=== PATIENT | female | born 1935 | race Caucasian/White ===

== ENCOUNTER 2019-03-23 07:46 | Inpatient (IN) | payer OTHER ==
[~2019-03-23] VITALS: Ht 162.6 cm; Wt 70.4 kg
[~2019-03-23 07:46] MED LIST: ALBU90OI; CLIM.025TP; DOC250 PO; LISI20 PO; SALM50IP; TRIHYD253A
[2019-03-23 08:21] LABS: BASOPHILS ABSOLUTE AUTO 0.13 K/mm3 (0.00-0.23); BASOPHILS PERCENT AUTO 1 % (0-2); EOSINOPHILS PERCENT AUTO 3 % (0-6); Hematocrit 52.3 % (33.0-51.0); Hemoglobin 17.2 g/dL (11.5-16.0); IMMATURE GRAN ABSOLUTE AUTO 0.05 K/mm3 (0.00-0.10); IMMATURE GRAN PERCENT AUTO 0 % (0-1); LYMPHOCYTES ABSOLUTE AUTO 3.16 K/mm3 (0.84-5.20); LYMPHOCYTES PERCENT AUTO 24 % (21-46); MONOCYTES ABSOLUTE AUTO 1.25 K/mm3 (0.16-1.47); MONOCYTES PERCENT AUTO 9 % (4-13); Mean Corpuscular HGB 31.3 pg (26.0-34.0); Mean Corpuscular HGB Conc 32.9 g/dL (31.5-36.5); Mean Corpuscular Volume 95 fL (80-100); Mean Platelet Volume 10.4 fL (9.1-12.4); NEUTROPHILS ABSOLUTE AUTO 8.27 K/mm3 (1.96-9.15); NEUTROPHILS PERCENT AUTO 62 % (41-73); Platelet Count 357 K/mm3 (150-400); RDW Coefficient Variation 13.5 % (11.7-14.2); RDW Standard Deviation 47.7 fL (35.1-46.3); Red Blood Cell Count 5.49 M/mm3 (3.80-5.20); White Blood Cell Count 13.26 K/mm3 (4.00-11.30)
[2019-03-23 08:26] LABS: PCO2 Arterial 47.7 mmHg (35-45); PO2 Arterial 82.2 mmHg (80-100); pH Blood Arterial 7.33 (7.35-7.45)
[2019-03-23 08:45] LABS: Albumin, Blood 4.2 g/dL (3.4-5.0); Albumin/Globulin Ratio 0.8 (0.8-1.8); Bilirubin, Total 0.3 mg/dL (0.1-1.0); Bun/Creatinine Ratio 17.3 (12.0-20.0); Calcium, Blood 9.8 mg/dL (8.5-10.1); Creatinine, Blood 1.27 mg/dL (0.40-1.00); Globulin, Blood 5.1 g/dL (2.2-4.0); Potassium, Blood 4.4 mmol/L (3.5-5.5); Total Protein, Blood 9.3 g/dL (6.4-8.2); Troponin I 0.021 ng/mL (0.000-0.040)
[2019-03-23] MEDS ORDERED: TIOT18 INH (09:19)
[2019-03-23] MEDS ORDERED: CLIMARA1 EACH (09:20)
[2019-03-23] MEDS ORDERED: ATEN25 PO (09:21)
--- NOTE | 2019-03-23 13:20 | NUR ---
PT ADMITTED/ BP 172/120 PT ADMITTED AT 1305. PT SATING IN THE 90S ON 5L VIA NC. PT BP ELEVATED AT 172/[address] THE [address] DR. NATARAJAN NOTIFIED & STATED HE WOULD PLACE ORDERED. PT ORIENTED TO ROOM. PT SLEEPY AT THIS TIME FROM ATIVAN GIVEN IN ER, BUT AROUSABLE. A&OX2. PT UNABLE TO GIVE CLEAR HEALTH HISTORY. WILL CONTINUE TO MONITOR.
--- NOTE | 2019-03-23 13:51 | NUR ---
PT BP IMPROVED. PT BP IMPROVED WITHOUT INTERVETION AT THIS TIME. WILL CONTINUE TO MONITOR.
--- NOTE | 2019-03-23 17:31 | NUR ---
SHIFT SUMMARY PT MORE ALERT & AWAKE NOW. CURRENTLY UP IN CHAIR FOR DINNER. PT HAS EXPRESSIVE DYSPHAGIA. A&OX3-4 NOW. HYDRALIZINE GIVEN ONCE THIS SHIFT TO ASSIST WITH BP CONTROL. CURRENT VSS. PT SATING IN THE 90S ON 5L. WILL CONTINUE TO MONITOR UNTIL TURNOVER IS COMPLETE. NO OTHER CHANGES IN ASSESSMENT AT THIS TIME.
[2019-03-24 04:21] LABS: BASOPHILS ABSOLUTE AUTO 0.01 K/mm3 (0.00-0.23); BASOPHILS PERCENT AUTO 0 % (0-2); EOSINOPHILS PERCENT AUTO 0 % (0-6); Hematocrit 40.7 % (33.0-51.0); Hemoglobin 13.5 g/dL (11.5-16.0); IMMATURE GRAN ABSOLUTE AUTO 0.03 K/mm3 (0.00-0.10); IMMATURE GRAN PERCENT AUTO 0 % (0-1); LYMPHOCYTES ABSOLUTE AUTO 0.42 K/mm3 (0.84-5.20); LYMPHOCYTES PERCENT AUTO 6 % (21-46); MONOCYTES ABSOLUTE AUTO 0.26 K/mm3 (0.16-1.47); MONOCYTES PERCENT AUTO 3 % (4-13); Mean Corpuscular HGB Conc 33.2 g/dL (31.5-36.5); Mean Corpuscular Volume 93 fL (80-100); Mean Platelet Volume 10.7 fL (9.1-12.4); NEUTROPHILS ABSOLUTE AUTO 6.93 K/mm3 (1.96-9.15); NEUTROPHILS PERCENT AUTO 91 % (41-73); Platelet Count 248 K/mm3 (150-400); RDW Coefficient Variation 13.7 % (11.7-14.2); RDW Standard Deviation 46.6 fL (35.1-46.3); Red Blood Cell Count 4.36 M/mm3 (3.80-5.20); White Blood Cell Count 7.65 K/mm3 (4.00-11.30)
[2019-03-24 04:46] LABS: Albumin, Blood 3.4 g/dL (3.4-5.0); Albumin/Globulin Ratio 0.9 (0.8-1.8); Bilirubin, Total 0.4 mg/dL (0.1-1.0); Bun/Creatinine Ratio 18.6 (12.0-20.0); Creatinine, Blood 1.13 mg/dL (0.40-1.00); Globulin, Blood 3.8 g/dL (2.2-4.0); Potassium, Blood 4.1 mmol/L (3.5-5.5); Total Protein, Blood 7.2 g/dL (6.4-8.2)
--- NOTE | 2019-03-24 05:48 | NUR ---
SHIFT SUMMARY PT SLEEPING IN ROOM COMFORTABLY AT THIS TIME. PT HAD NO ACUTE CHANGES IN STATUS T/O NIGHT. PT VERY ANXIOUS ABOUT BEING IN HOSPITAL. PT ALSOP VERY PARTICULAR ABOUT MEDICATIONS AND HOW THINGS SHOULD BE DONE, OCCASIONALLY ARGUMENTATIVE W/ STAFF. PT USUALLY EASILY REDIRECTABLE. PT ALSO VERY [place], HAS HEARING AID BUT REPORTS "DON'T LIKE TO WEAR IT IF I DONT REALLY HAVE TO". PT IS VERY UNSTEADY ON FEET HEN STANDING, AND DOES NOT USE CALL LIGHT APPROPRIATELY. BED ALARM HAS BEEN ON FOR PT SAFETY. RESP UNEVEN, AND TACHYPNIC W/ ANY EXERTION. PT ALSO REPORTS GETS "PTSD BREATHING" W/ EXERTION, TO WHICH PT REPORTS "I NEED A PAPER BAG TO BREATH IN AND THAT WILL BE BETTER". PT DENIES PAIN UNLESS L SIDE IS TOUCHED, PT HAD FALL RECENTLY AT HOME, AND L SIDE IS VERY SORE. CALL LIGHT IS IN REACH, BED ALARM ON FOR SAFETY.
--- NOTE | 2019-03-24 17:33 | NUR ---
PT IS AOX3 WITH CONFUSION AND IS ZUNI. PT CALLS INTERMITTENTLY AND CAN SET BED ALARM OF PERIODICALLY. BED ALARM IN PLACE. PT IS A ONE PERSON TO BEDSIDE COMMODE. PT STATES SHE FEELS MUCH BETTER TODAY. PT O2 HAS BEEN 93-96%. PLEASANT AND COOPERATIVE. WILL CONITUE TO MONITOR.
--- NOTE | 2019-03-24 17:50 | NUR ---
DECLINES MEDICATION FOR NAUSEA AND VOMITING. STATES THAT SHE IS STARVING SO HER BODY IS REACTING TO THAT. SHE STATES THAT SHE DOES NOT WANT ANYTHING FOR NAUSEA OR VOMITING; STATES SHE WANTS TO LET HER STOMACH CLEAN ITSELF OUT.
--- NOTE | 2019-03-24 18:00 | NUR ---
PT HAD NAUSEA AT DINNER. WHEN OFFERED NAUSEA MEDS SHE REFUSED AND STATED SHE NEEDS TO EMPTY STOMACH.
--- NOTE | 2019-03-24 23:00 | NUR ---
PT VERY AGGITATED THIS RN TO ROOM AFTER PT SET OFF BED ALARM. PT WAS LYIGN SIDEWAYS IN BED WITH FEET OVER RAILING. THIS RN AND SOIL CONSERVATION TECHNICIAN ATTEMPED TO HELP BOOST PT IN BED WITH CROOKS PAD, PT STARTED YELLING AT STAFF AND SWINGING ARMS AT STAFF. STAFF BACKED AWAY FROM PT AND THIS TIME. PT EDUCATED THAT VIOLENCE TOWARDS STAFF WAS UNACCEPTABLE. PT CALMING AT THIS TIME. ASSISTED PT TP SITTING POSITION. PT REMAINS AGGITATED AT THIS TIME, PT VERY UPSET ABOUT SIDE RAILS BEING UP ON THE BED PT STS "YOU'RE TREATING ME LIKE A SLAVE!". PT WAS EDUCATED ABOUT NEED FOR SIDE RAILS DUE TO PT NOT REMEMBERING TO USE CALL LIGHT APPROPRIATELY BEFORE NEEDING TO GET OUT OF BED. PT ALSO HAS HAD RECENT FALLS AT HOME, AND NEAR FALLS DURING THIS HOSPITAL STAY. PT REMAINS VERY AGGITATED WITH THIS RN, AND STARTS YELLING AT STAFF. DIETITIAN TO ROOM TO ATTEMPT TO HELP CALM PT. MEDICATIONS GIVEN AT THIS TIME FOR ANXIETY. PT ASSISTED BACK TO BACK TO BED AFTER SEVERAL MINUTES OF EDUCATION FROM DIETITIAN. CALL LIGHT IN REACH. BED ALARM ON
--- NOTE | 2019-03-25 06:27 | NUR ---
SHIFT SUMMARY PT SLEEPING IN ROOM COMFORTABLY AT THIS TIME. PT HAD EPIDOES OF AGGITATION AND ANGER AT STAFF FOR NOT BEING ALLOWED TO BE UP IN ROOM W/O STAFF PRESENT. PT WAS UPSET WITH SIDERAILS BEING USED AND BED ALARM GOING OFF WHEN PT ATTEMPTED TO STAND. SEE PREVIOUS NOTE. PT WAS MEDICATED FOR AGGITATION AND ANXIETY AND PROCEDED TO SLEEP WELL T/O THE REST OF THE NIGHT AND WAS MORE EASILY DIRECTABLE, AND COOPERATIVE W/ CARE. RESP SHALLOW AND TACHY ON 2L NC W/ SATS >92%. PT HAS PRODUCTIVE COUGH. PT DENIES PAIN. DOES NOT USE CALL LIGHT APPROPRIATELY. BED ALARM AND SIDE RAILS UP FOR SAFETY.
--- NOTE | 2019-03-25 08:15 | NUR ---
PT PLEASANT COOP HIGH ANXIETY. A/O. IN TALKING ABOUT FAMILY, SHE STATES HER DAUGHTER WAS MURDERED. DISCUSSED BENEFIT OF ATIVAN TO HELP TAKE SOME ANXIETY, SHE REF AT THIS TIME. STATES WILL TRY CALM SELF, WITH GODS HELP. AGREED TO RECONSIDER IF WORSENS. H/R REG, NO MURMER NOTED. PER TELE: S TACH AT 116 WITH PVC'S. LUNGS TIGHT AND WHEEZY T/O. RESP AT 20, SOME EFFORT. ABLE TO TALK 6-8 WORD SENTENCES MORE WHEN DISTRACTED. ON 2L O2. BT X4 LAST BM PT STATES NOT SURE.VOIDS PER BSC. 1 ASST WITH FWW. BED ALARM ON FOR SAFETY, BED IN LOW POSITION, CALL LITE IN REACH.
--- NOTE | 2019-03-25 11:00 | NUR ---
PT RESTING, EYES CLOSED. RESP EASY, UNLABORED. DID NOT AWAKEN
--- NOTE | 2019-03-25 18:51 | NUR ---
PT QUITE PLEASANT TODAY. DENIES PAIN, ANXIOUS. STATES HAS HAD MUCH IMPROVEMENT WITH ATIVAN. 1/2 MG. HAVE HAD SEVERAL TALKS WITH HER TODAY. RESP IMPROVED SINCE THIS AM. NO OTHER CONCERNS AT THIS TIME. BED IN LOW POSITION, CALL LITE IN REACH, CALLS APPROP.
--- NOTE | 2019-03-26 02:21 | NUR ---
ASSUMED CARE FROM SEAN BARFIELD APPROXIMATELY 1900; PT IS CONFUSED AND ANXIOUS AT TIMES; NEEDS FREQUENT REASSURANCE; LIVES ALONE AND USES FWW BASELINE; APPRECIATES TIME TAKEN WITH INTERVENTIONS AND EXPLAINATIONS;PT STANDS AND PIVOTS TO BSC W/ ASSISTANCE; DYSPNIC W/EXERTION; PT STATES SHE "FEELS SO WEAK"; TELE IN PLACE; SINUS TACH W/ HR 107; 2 LPM NC; O2 SATS >90% PT STATES SHE IS WONDERING WHY GOD HAS NOT TAKEN HER YET; ANXIOUSNESS PROGRESSIVE THROUGH THE NIGHT; PT REMINED TO USE CALL LIGHT FOR SAFETY; BED ALARM ON; BED IN LOWEST POSITION; CALL LIGHT WITHIN REACH; WILL CONTINUE TO MONITOR AND ASSESS UNTIL HANDOFF TO DAY SHIFT RN.
[2019-03-26 04:07] LABS: BASOPHILS ABSOLUTE AUTO 0.01 K/mm3 (0.00-0.23); BASOPHILS PERCENT AUTO 0 % (0-2); EOSINOPHILS PERCENT AUTO 0 % (0-6); Hematocrit 40.8 % (33.0-51.0); Hemoglobin 13.5 g/dL (11.5-16.0); IMMATURE GRAN ABSOLUTE AUTO 0.08 K/mm3 (0.00-0.10); IMMATURE GRAN PERCENT AUTO 1 % (0-1); LYMPHOCYTES ABSOLUTE AUTO 0.21 K/mm3 (0.84-5.20); LYMPHOCYTES PERCENT AUTO 2 % (21-46); MONOCYTES ABSOLUTE AUTO 0.49 K/mm3 (0.16-1.47); MONOCYTES PERCENT AUTO 5 % (4-13); Mean Corpuscular HGB Conc 33.1 g/dL (31.5-36.5); Mean Corpuscular Volume 94 fL (80-100); Mean Platelet Volume 10.6 fL (9.1-12.4); NEUTROPHILS ABSOLUTE AUTO 10.06 K/mm3 (1.96-9.15); NEUTROPHILS PERCENT AUTO 93 % (41-73); Platelet Count 236 K/mm3 (150-400); RDW Standard Deviation 47.5 fL (35.1-46.3); Red Blood Cell Count 4.35 M/mm3 (3.80-5.20); White Blood Cell Count 10.85 K/mm3 (4.00-11.30)
[2019-03-26 04:30] LABS: Albumin, Blood 3.5 g/dL (3.4-5.0); Anion Gap 8 mmol/L (6-16); Blood Urea Nitrogen 32 mg/dL (8-24); Bun/Creatinine Ratio 26.9 (12.0-20.0); CO2, Blood 23 mmol/L (21-32); Calcium, Blood 9.2 mg/dL (8.5-10.1); Chloride, Blood 102 mmol/L (98-108); Creatinine, Blood 1.19 mg/dL (0.40-1.00); Glomerular Filtration Rate 46 (60-); Glucose, Blood 155 mg/dL (70-99); Magnesium, Blood 2.1 mg/dL (1.6-2.4); Phosphorus, Blood 2.1 mg/dL (2.5-4.9); Potassium, Blood 4.6 mmol/L (3.5-5.5); Sodium, Blood 133 mmol/L (136-145)
[2019-03-26 04:37] LABS: Troponin I 0.885 ng/mL (0.000-0.040)
[2019-03-26 10:49] LABS: Adenovirus Not Detected (NOT DETECT); Bordetella pertussis Not Detected (NOT DETECT); Chlamydophila pneumoniae Not Detected (NOT DETECT); Coronavirus 229E Not Detected (NOT DETECT); Coronavirus HKU1 Not Detected (NOT DETECT); Coronavirus NL63 Not Detected (NOT DETECT); Coronavirus OC43 Not Detected (NOT DETECT); Human Metapneumovirus Not Detected (NOT DETECT); Human Rhinovirus/Enterovirus Not Detected (NOT DETECT); Influenza A Not Detected (NOT DETECT); Influenza A/2009-H1 Not Detected (NOT DETECT); Influenza A/H1 Not Detected (NOT DETECT); Influenza A/H3 Not Detected (NOT DETECT); Influenza B Not Detected (NOT DETECT); Mycoplasma pneumoniae Not Detected (NOT DETECT); Parainfluenza Virus 1 Not Detected (NOT DETECT); Parainfluenza Virus 2 Not Detected (NOT DETECT); Parainfluenza Virus 3 Not Detected (NOT DETECT); Parainfluenza Virus 4 Not Detected (NOT DETECT); Respiratory Syncytial Virus Not Detected (NOT DETECT)
--- NOTE | 2019-03-26 13:53 | NUR ---
PT'S FRIEND ALE IS WHO BROUGHT HER TO THE HOSPITAL, SHE WOULD LIKE TO CALL HER AT [phone]
--- NOTE | 2019-03-26 17:43 | NUR ---
SUMMARY/TRANSFER PT TO BE TRANSFERRED TO MEDICAL FLOOR ROOM 361, REPORT CALLED TO SHARON ESTRADA, PT HAS BEEN ALERT AND ORIENTED, BUT VERY HYDABURG, PT WITH HIGH ANXIETY OFF AND ON T/O THE DAY, PT REFUSED HER SOLU-MEDROL STATING SHE DID NOT LIKE HOW IT MADE HER FEEL, AND SHE DECLINED TO TAKE ANY ATIVAN FOR HER ANXIETY BECAUSE SHE DID NOT LIKE HOW THAT MADE HER FEEL EITHER, PT ABLE TO CONTACT A FRIEND TO COME VISIT HER THIS AFTERNOON, PT UP IN THE RECLINER EATING HER DINNER, WILL MOVE TO THE FLOOR ONCE SHE IS DONE
--- NOTE | 2019-03-26 18:23 | NUR ---
PATIENT TRANSFER. THE PATIENT WAS TRANSFERRED TO THE MEDICAL FLOOR, ROOM #361 AT 1815, FORM PCU #[id number], AFTER REPORT WAS CALLED IN FROM THE PCU. THE PATIENT ARRIVED ON THE FLOOR IN A GURNEY AND WAS SLID ACROSS TO HER BED. THE PATIENT IS RESTING AT THIS TIME, WILL CONTINUE TO MONITOR.
--- NOTE | 2019-03-27 06:37 | NUR ---
SHIFT SUMMARY PT VERY ANXIOUS AND NONCOMPLIANT WITH MEDICATIONS AND CARE. REFUSED PROTONIX THIS AM AND REFUSED TO LET LAB DRAW. TELLING ME THAT "THAT'S NOT WHY I'M HERE" AND THAT SHE WAS "READY TO BE WITH THE LORD". PT ON RA MOST OF THE EVENING WITH O2 SATS IN THE LOW 90'S. PT SBA TO BSC. GOOD AMOUNT OF OUTPUT THIS EVENING. HEART RATE AND BLOOD PRESSURE ELEVATED BUT IMPROVED WITH EVENING DOSE OF METOPROLOL. OTHERWISE NO ACUTE CHANGES. WILL CONTINUE TO MONITOR AND REPORT TO DAY RN.
--- NOTE | 2019-03-27 16:27 | NUR ---
SHIFT SUMMARY THE PATIENT PRESENT THIS MORNING A&O X3, ELEVATED B/P AND WITH DIMINISHED LUNG SOUNDS. THE PATIENT HAS REFUSED MOST OF HER MEDICATIONS THIS SHIFT AND HAS TOLD HER DOCTOR THAT SHE WAS GOING TO LEAVE. THE DOCTOR TRIED TO PERSAUDE HER AGAIST THE MOVE, BUT THE PATIENT WAS SET IN HER WAY. THE PATIENT WAS INTERVIEWED BY THE CHARGE NURSE AND IS NOT HAPPY ABOUT BEING "HELD". THE PATIENT HAS A FRIEND THAT TOLD THE CHARGE NURSE THAT SHE CAN NOT TAKE CARE OF THE PATIENT. THE PATIENT IS REFUSING ANY ACTIONS, REFUSING TO ALLOW THE SCANING OF HER I/D BAND. THE PATIENT IS SETTING ON THE SIDE OF HER BED, WILL CONTINUE TO MONITOR.
--- NOTE | 2019-03-27 21:01 | NUR ---
PT REFUSING ANY CARE OR MEDICATIONS AT THIS POINT. WOULD NOT ALLOW VITAL SIGNS OR TAKE MEDICATIONS THIS EVENING.
--- NOTE | 2019-03-28 05:33 | NUR ---
SHIFT SUMMARY PT COMPLETELY NONCOMPLIANT THIS EVENING. REFUSING ALL CARE AND MEDICATIONS. PT STATES THAT SHE BELIEVES THAT SHE DOES NOT NEED TO BE HERE AND THAT SHE WILL NOT BE TAKING ANY MEDICATIONS OR ALLOWING ANYTHING TO BE DONE WHILE SHE IS HERE. PT DID NOT APPEAR TO BE IN ANY RESPIRATORY DISTRESS THIS EVENING AND REMAINED ON RA. HOWEVER, PT WOULD NOT LET ME LISTEN TO HER LUNGS OR CHECK HER O2 SATS. PT RESTING IN HER BED AT THIS TIME, LAYING WITH HER HEAD AT THE FOOT OF THE BED. PT HAS BEEN GETTING UP INDEPENDENTLY TO [facility]. STEADY ON HER FEET. NO ACUTE CHANGES THIS EVENING.
--- NOTE | 2019-03-28 06:32 | NUR ---
WENT TO ROUND ON PT ONE LAST TIME AND FOUND PT LYING ON THE FLOOR WITH A PILLOW AND A BLANKET. TOLD PT SHE COULD NOT SLEEP ON THE FLOOR AND ASSISTED PT BACK UP TO BED. PT REFUSED TO HAVE HER HEAD AT THE HEAD OF THE BED AND THEN REFUSED TO LAY DOWN. PT IS SITTING ON THE SIDE OF THE BED AT THIS TIME. [employer] HCM CONSULTANT REPORTED THAT SHE HAD JUST BEEN IN THE PT'S ROOM 15 MINUTES PRIOR AND PT REFUSED TO LAY IN THE BED CORRECTLY AT THIS TIME ALSO. PT HAS NO BRUISING OR SIGNS OF A FALL. EDUCATED PT ON WHY SHE NEEDED HELP FROM STAFF BUT PT IS ADAMENT THAT SHE IS "FINE" AND REFUSES HELP OR CARE FROM STAFF. PT HAD BEEN AMBULATING IN THE ROOM INDEPENDENTLY, THIS NURSE WATCHED PT WALK FROM BED TO DOOR TO THE ROOM WITH NO DIFFICULTY EARLIER IN THE SHIFT. PT CONTINUING TO REFUSE VITAL SIGNS ALSO. WILL PASS ON TO DAY RN.
--- NOTE | 2019-03-28 15:30 | NUR ---
LASIX REFUSAL PT REFUSES LASIX, WHEN ASKED WHY STATES SHE HAS TAKEN IT IN THE PAST. IT MADE HER CRAZY, MEAN AND SHE REMEMBERS TAKING IT WITH POTASSIUM. PT CONTUNIALLY REPEATS THAT SHE IS "ALREADY LOOSING PLENTY OF WATER AND MY FEET STOPPED SWELLING".
--- NOTE | 2019-03-28 17:12 | NUR ---
Mrs. Fraser was quite talkative and appreciative of prayer and theraputic listening. She explained to me her rather eccelctic catholic beliefs and was delighted that I affirmed these. She wanted a Gnosticism bible and I informed her that what is provided is a Lucio's New Testament/Psalms. I retreived her copy from the dresser. She was happy about this. We had an easy rapport. She has a kriss sree that sustains her. We prayed together for healing. I will remain available.
--- NOTE | 2019-03-28 19:58 | NUR ---
SHIFT SUMMARY PT HAS BEEN PLEASANT AND MOSTLY COOPERATIVE FOR MY SHIFT. TAKES MUCH TIME AND EXPLANATION TO AGREE TO DO THINGS. DECLINED TAKING LASIX, PT ABLE TO EXPLAIN LASIX MEDICATION, USE AND WHEN AND WHY SHE WAS PRESCRIBED.
--- NOTE | 2019-03-29 07:33 | NUR ---
SHIFT SUMMARY A/O, ABLE TO MAKE NEEDS KNOWN. [place]. DIFFICULT TO GIVE EDUCATION. FORGETFUL AT TIMES. FREQUENT BED EXITS; EDUCATED EACH TIME IN REGARDS TO SAFETY AND USING CALL LIGHT PRIOR. NO ACUTE CHANGES OVERNIGHT. HYPERTENSIVE THIS AM; HOWEVER, ON TREND WITH PREVIOUS PRESSURES. ALL OTHER VITALS WNL/AFEBRILE. TOOK MEDS WILLINGLY AFTER EXPLAINATIONS. NEW ORDER FOR ANTIEMETIC. BED IN LOWEST POSITION. ALARM ON. CALL LIGHT AND BELONGINGS WITHIN REACH. WCTM. REPORT TO ONCOMING RN.
--- NOTE | 2019-03-29 14:57 | NUR ---
Irene is quite talkative, but she tends to switch topics mid-sentance. She is very samaritan and enjoyed telling how her sree guides her through life. She believes the nurses and doctors are trying to force her to go to rehab. Irene cites biblical references for this decision. She firmly states that she can manage at home on her own "with God." She says she has "an adoptive daughter" who lives in [place] and several other caring family members who all live out of [place] [facility]. It is unclear to me who she has to physically help her locally. I tired very hard to get her to realize that rehab was a good thing for her, citing bible verses calling us to care for our bodies. I was unable to disuade Irene to do anything other than going home. Still, we have a comfortable rapport and she enjoys companionship and sree sharing. I prayed for her and will remain available.
--- NOTE | 2019-03-29 17:46 | NUR ---
PATIENT IS ALERT AND HAS BEEN COOPERATIVE WITH CARES THIS SHIFT. SHE IS A STRONG ONE ASSIST TO THE BEDSIDE COMMODE. THIS NURSE CAUTIONED HER ON FALLS AND SHE HAS BEEN USING HER CALL LIGHT NEEDED. NO ACUTE CHANGES THIS SHIFT.
--- NOTE | 2019-03-30 05:14 | NUR ---
PATIENT SERVICE TECHNICIAN PST SUMMARY NO ACUTE CHANGES THIS SHIFT. PT AAOX2 WITH SOME INTERMITTENT CONFUSION. PT VERY [place] AND REQUIRES SLOW, PRECISE COMMUNICATION. PT CAN BE IRRITABLE WITH CARE AND REFUSES CARE AT TIMES. PT REPORTED NOT HAVING A BM IN SEVERAL DAYS. GAVE PT ADDITIONAL SENNOKOT PER EMAR. NO BM THIS SHIFT HOWEVER PT DENIES ADDITIONAL BOWEL MEDS AND STATED "LETS WAIT AND SEE IF THIS WORKS". BED ALARM ON FOR SAFETY, PT STILL UNSTEADY ON FEET AT TIMES. PT HAS CALLED FOR ASSITANCE MOST OF THE TIME. VSS, WILL CONTINUE TO MONITOR.
[2019-03-30 15:08] LABS: BASOPHILS ABSOLUTE AUTO 0.01 K/mm3 (0.00-0.23); BASOPHILS PERCENT AUTO 0 % (0-2); EOSINOPHILS ABSOLUTE AUTO 0.19 K/mm3 (0.00-0.68); EOSINOPHILS PERCENT AUTO 2 % (0-6); Hematocrit 43.1 % (33.0-51.0); Hemoglobin 14.3 g/dL (11.5-16.0); IMMATURE GRAN ABSOLUTE AUTO 0.12 K/mm3 (0.00-0.10); IMMATURE GRAN PERCENT AUTO 1 % (0-1); LYMPHOCYTES ABSOLUTE AUTO 1.11 K/mm3 (0.84-5.20); LYMPHOCYTES PERCENT AUTO 10 % (21-46); MONOCYTES PERCENT AUTO 11 % (4-13); Mean Corpuscular HGB Conc 33.2 g/dL (31.5-36.5); Mean Corpuscular Volume 93 fL (80-100); Mean Platelet Volume 11.4 fL (9.1-12.4); NEUTROPHILS ABSOLUTE AUTO 8.67 K/mm3 (1.96-9.15); NEUTROPHILS PERCENT AUTO 76 % (41-73); Platelet Count 234 K/mm3 (150-400); RDW Coefficient Variation 13.9 % (11.7-14.2); RDW Standard Deviation 47.5 fL (35.1-46.3); Red Blood Cell Count 4.62 M/mm3 (3.80-5.20)
[2019-03-30 15:34] LABS: Bun/Creatinine Ratio 22.1 (12.0-20.0); Calcium, Blood 9.1 mg/dL (8.5-10.1); Creatinine, Blood 1.31 mg/dL (0.40-1.00); Potassium, Blood 4.1 mmol/L (3.5-5.5)
--- NOTE | 2019-03-30 18:34 | NUR ---
NO ACUTE CHANGES THIS SHIFT. STILL NO BM
--- NOTE | 2019-03-31 06:11 | NUR ---
PRINCIPAL SOFTWARE ENGINEER SUMMARY PT AAOX2, PLEASANT AND COOPERATIVE WITH CARE. SOME INTERMITTENT CONFUSION. PT SEEMS MORE UNDERSTANDING TONIGHT THAT SHE MAY NEED ADDITIONAL HELP BEFORE GOING HOME. THIS RN EXPLAINED POSSIBLE NEED FOR SNF PLACEMENT AND PT SEEMED MORE OPEN TO THAT IDEA. ALSO WANTED TO DISCUSS GETTING A LIFE ALERT SYSTEM IN THE FUTUER. PT STILL HAS NOT HAD A BM. CALLED DR COLEY WHO GAVE ORDER FOR BOWEL PROTOCOL MEDS. GAVE PT SENNOKOT AND MILK OF MAG. PT STARTING TO PASS MORE GAS THIS AM AND STATES "IT FEELS LIKE THINGS ARE MOVING A BIT". VITALS HAVE BEEN STABLE. WILL CONTINUE TO MONITOR.
--- NOTE | 2019-03-31 16:41 | NUR ---
SHIFT SUMMARY NO ACUTE CHANGES. PATIENT VERY CONFUSED TODAY. PATIENT DOES NOT CALL APPROPRIATELY AND SETS OFF BED ALARM FREQUENTLY. PATIENT HAS STATED SEVERAL TIMES TODAY THAT SHE IS UPSET WITH THE RESULTS OF HER PSYCH EVAL AND DOES NOT BELIEVE THAT SHE NEEDS ANY HELP. PATIENT UP SBA W/FWW. PATIENT HAD SMALL BOWEL MOVEMENT TODAY BUT IS STILL REPORTING CONSTIPATION. CALL LIGHT IN REACH, WILL CONTINUE TO MONITOR.
--- NOTE | 2019-03-31 20:35 | NUR ---
RECEIVED REPORT FROM SEAN BLAIR PATIENT MOVED INTO ROOM 353; PATIENT USED THE BSC AND HAD A SMALL SOFT BM, NO VOID. PATIENT GOT INTO BED AND BED ALARMED. ASSESSMENT COMPLETED - BED TIME MEDS GIVEN.
[2019-04-01 05:32] LABS: Bun/Creatinine Ratio 17.1 (12.0-20.0); Calcium, Blood 9.2 mg/dL (8.5-10.1); Creatinine, Blood 1.29 mg/dL (0.40-1.00); Potassium, Blood 4.1 mmol/L (3.5-5.5)
--- NOTE | 2019-04-01 09:00 | NUR ---
PT PLEASANT COOP A/O TO SELF, FAMILY, MEDICINES, PRESIDENT. STATES VERY LIGHT SENSITIVE. DENIES PAIN AT THIS TIME. H/R REG, NO MURMER NOTED. NO TELE. LUNGS CLEAR, RESP EASY, UNLABORED. ON R/A. BT X4 LAST BM YEST. VOIDS PER BATHROOM. 1 ASST WITH FWW. VERY TALKATIVE. BED IN LOW POSITION, CALL LITE IN REACH, CALLS APPROP. BED ALARM ON FOR SAFETY
--- NOTE | 2019-04-01 15:24 | NUR ---
PT WANTED TO AIR SELF. WALKED PT WITH FWW AND GAIT BELT FROM BED IN 353 TO WINDOW TO SEE WATER FALLS AND DOGWOOD TREES. APPROX 50 ROUND TRIP. PT DID WELL. TOOK BACK TO BED. ALARM SET.
--- NOTE | 2019-04-01 18:23 | NUR ---
PT QUITE PLEASANT TODAY . DID WALK FOR ME FROM BED TO BATHROOM TO END OF HALLWAY AND BACK. DID WELL. DID GET A BED BATH. PT TALKED ABOUT BEING HALF [place]STR[place] AND HALF [place]. STATES GETS OVERWHELMED WITH MORE THAN ONE THING AT A TIME SINCE STROKE. NO OTHER CONCERNS AT THIS TIME. BED IN LOW POSITION, CALL LITE IN REACH. CALLS APPROP MOST OF TIME. BED ALARM ON FOR SAFETY
--- NOTE | 2019-04-02 05:50 | NUR ---
NOC SHIFT SUMMARY PT IS PLEASANT AND COOPERATIVE WITH CARE. SHE IS IMPULSIVE AT TIMES AND ATTEMPTS TO GET UP FROM BED WITHOUT USING CALL LIGHT. PHOTOPHOBIC AND NUIQSUT. LUNG SOUND CLEAR THOUGH DIMINISHED. SHE HAS COMPLAINED OF BACK ACHE WITCH WAS TREATED PER EMAR. VSS. PT APPEARS IN NO ACUTE DISTRESS AND IS PRESENTLY SLEEPING. WILL CONTINUE TO MONITOR.
--- NOTE | 2019-04-02 17:30 | NUR ---
PT IS AOX3 WITH CONFUSION. PT HAS BEEN COOPERATIVE OF CARE AND IS A ONE PERSON WTIH GAIT BELT TO TRANSFER. PT GET A LITTLE WORRIED, BUT CAN BE CALMED DOWN AND REDIRECTED. PT LOOKS TO BE IMPROVING. NO DISTRESS NOTED WILL CONTINUE TO MONITOR.
[2019-04-03 05:23] LABS: BASOPHILS ABSOLUTE AUTO 0.03 K/mm3 (0.00-0.23); BASOPHILS PERCENT AUTO 0 % (0-2); EOSINOPHILS ABSOLUTE AUTO 0.28 K/mm3 (0.00-0.68); EOSINOPHILS PERCENT AUTO 3 % (0-6); Hematocrit 39.8 % (33.0-51.0); Hemoglobin 12.9 g/dL (11.5-16.0); IMMATURE GRAN ABSOLUTE AUTO 0.06 K/mm3 (0.00-0.10); IMMATURE GRAN PERCENT AUTO 1 % (0-1); LYMPHOCYTES ABSOLUTE AUTO 1.37 K/mm3 (0.84-5.20); LYMPHOCYTES PERCENT AUTO 16 % (21-46); MONOCYTES ABSOLUTE AUTO 1.33 K/mm3 (0.16-1.47); MONOCYTES PERCENT AUTO 16 % (4-13); Mean Corpuscular HGB 31.1 pg (26.0-34.0); Mean Corpuscular HGB Conc 32.4 g/dL (31.5-36.5); NEUTROPHILS ABSOLUTE AUTO 5.36 K/mm3 (1.96-9.15); NEUTROPHILS PERCENT AUTO 64 % (41-73); Platelet Count 227 K/mm3 (150-400); RDW Coefficient Variation 13.6 % (11.7-14.2); RDW Standard Deviation 48.6 fL (35.1-46.3); Red Blood Cell Count 4.15 M/mm3 (3.80-5.20); White Blood Cell Count 8.43 K/mm3 (4.00-11.30)
[2019-04-03 05:24] LABS: Mean Corpuscular Volume 96 fL (80-100)
--- NOTE | 2019-04-03 05:32 | NUR ---
NOC SHIFT SUMMARY PT IS FOR THE MOST PART PLEASANTLY CONFUSED AND COOPERATIVE WITH CARE THOUGH AT TIMES SHE CAN BECOME [id number] AND UPSET. SHE IS IMPULSIVE AND ATTEMPTS TO GET OUT OF BED WITHOUT USING CALL LIGHT. UNSTEADY ON FEET AND IS A 1 PERSON ASSIST TO THE COMMODE. SHE HAS SLEPT MOST OF THE NIGHT. VSS. CURRENTLY APPEARS TO BE SLEEPING AND IN NO ACUTE DISTRESS. WILL CONTINUE TO MONITOR.
[2019-04-03 06:04] LABS: Albumin, Blood 2.8 g/dL (3.4-5.0); Albumin/Globulin Ratio 0.8 (0.8-1.8); Bilirubin, Total 0.5 mg/dL (0.1-1.0); Bun/Creatinine Ratio 22.2 (12.0-20.0); Calcium, Blood 8.8 mg/dL (8.5-10.1); Creatinine, Blood 1.35 mg/dL (0.40-1.00); Globulin, Blood 3.6 g/dL (2.2-4.0); Magnesium, Blood 2.3 mg/dL (1.6-2.4); Phosphorus, Blood 3.1 mg/dL (2.5-4.9); Potassium, Blood 4.4 mmol/L (3.5-5.5); Total Protein, Blood 6.4 g/dL (6.4-8.2)
[2019-04-03 11:26] LABS: Source, Urine Clean Catch
[2019-04-03 11:33] LABS: Appearance, Urine Clear (Clear); Bilirubin, Urine Neg (Neg); Blood, Urine Neg (Neg); Color, Urine Yellow (P-Yellow); Glucose Qualitative, Urine Neg (Neg); Ketones, Urine Neg (Neg); Leukocyte Esterase, Urine Neg (Neg); Nitrite, Urine Neg (Neg); Protein, Urine Neg (Neg); Specific Gravity, Urine 1.005 (1.003-1.022); Urobilinogen, Urine NORM (Normal)
--- NOTE | 2019-04-03 17:29 | NUR ---
PT AOX3 WITH CONFUSION. PT WILL CALL APPROPRIATELY AND SITS AT SIDE OF THE BED WELL. PT USING BEDSIDE COMODE AND IS BEST WITH A GAIT BELT AND WALKER. PT STATES SHE IS FEELING CONSTIPATED AND THIS PLUMBING AND HEATING CONTRACTOR WILL BE DOING A SUPPOSITORY PRIOR TO END OF SHIFT. PT HAS REQUESTED TWO BREATHING TREATMENTS TODAY SHE REPORTED FEELING SHORT OF BREATH BOTH TIMES. THESE SEEM EFFECTIVE. WILL CONTINUE TO MONITOR.
--- NOTE | 2019-04-04 05:09 | NUR ---
NOC SHIFT SUMMARY PT IS ANXIOUS AND CONFUSED THIS NIGHT. SHE IS VERY [place] AND ONE MUST SPEAK LOUDLY FOR HER TO UNDERSTAND. SHE IS FEELING CONSTIPATED AND PREVOUS SHIFT HAD GIVEN SUPPOSITORY. I HAVE GIVEN MOM WELL AND SHE HAS HAD A NUMBER OF SMALL STOOLS AND REPORTS FEELING BETTER. VSS. SHE IS PRESENTLY SLEEPING AND APPEARS I NO ACUTE DISTRESS. WILL COTINUE TO MONITOR.
[2019-04-04 05:39] LABS: Bun/Creatinine Ratio 22.4 (12.0-20.0); Calcium, Blood 9.1 mg/dL (8.5-10.1); Creatinine, Blood 1.25 mg/dL (0.40-1.00)
--- NOTE | 2019-04-04 18:09 | NUR ---
CONTACT INFORMATION: PATIENT'S VERY GOOD FRIEND AND ADOPTED FAMILY MEMBER, NANCY TRUJILLO, CAME TO VISIT THE PATIENT. HER PHONE NUMBER IS [phone]. SHE REPORTS THAT SHE WILL BE COLLECTED SOME ITEMS FROM THE PATIENT'S APARTMENT AND WILL BE RETURNING TOMORROW (04/05).
--- NOTE | 2019-04-04 18:11 | NUR ---
END OF SHIFT NOTE: PATIENT CALM AND COOPERATIVE THROUGHOUT SHIFT. PATIENT REPORTED A HEADACHE IN THE MORNING. MEDICATED WITH TYLENOL PER PRNS. DENIED OTHER NEEDS. PATIENT REPORTED THAT SHE NO LONGER TAKES LASIX. SHE REPORTED THAT HER BODY HAD A "BAD REACTION" TO IT LAST TIME. RELAYED THIS INFORMATION TO DR. ROBER CARBONE. NO NEW ORDERS. PATIENT IS STABLE WITH A STANDING TRANSFER TO THE [facility] [place]. ABLE TO PERFORM WITH SBA ONLY. SOME SOB WITH EXERTION. AMBULATED IN THE [place] WITH CARE TEAM, WALKER, AND GAIT BELT. PATIENT STABLE. PATIENT REPORTED SOME SOB TWICE DURING THE SHIFT. SOB RESOLVED WITH RT TREATMENT. PATIENT CONTINUES TO HAVE MINIMAL-MODERATE AMOUNTS OF SPUTUM. NO PARANOID THOUGHTS. PATIENT INVOLVED IN CARE PLAN AND DISCHARGE OPTIONS. PATIENT ABLE TO PERFORM ADLS WITH SBA ONLY (DRESSING, TOILETING, EATING). PATIENT HAD MULTIPLE VISITORS TODAY. SEE NOTE ABOUT CONTACT INFORMATION.
--- NOTE | 2019-04-05 04:29 | NUR ---
CARPET CLEANER SUMMARY NO ACUTE CHANGES. PT AAOX2 WITH SOME INTERMITTENT CONFUSION. PT IS VERY PLEASANT. INDEPENDENT TO BSC. PT HAD ANOTHER BM AT START OF SHIFT. DENIES PAIN, SOB, N/V. AWAITING GUARDIANSHIP AND PLACEMENT. VSS, WILL CONTINUE TO MONITOR.
[2019-04-05 10:51] LABS: Albumin, Blood 3.3 g/dL (3.4-5.0); Albumin/Globulin Ratio 0.8 (0.8-1.8); Bilirubin, Total 0.3 mg/dL (0.1-1.0); Creatinine, Blood 1.24 mg/dL (0.40-1.00); Globulin, Blood 3.9 g/dL (2.2-4.0); Potassium, Blood 4.8 mmol/L (3.5-5.5); Total Protein, Blood 7.2 g/dL (6.4-8.2)
--- NOTE | 2019-04-05 17:03 | NUR ---
HOME SUPPLEMENTS ANESTHESIOLOGY MEDICAL DOCTOR NOTED PATIENT TAKING MEDICATION FROM A BOTTLE. PATIENT REPORTED THAT SHE WAS TAKING HER HOME SUPPLEMENTS FOR EYE HEALTH. PATIENT REQUESTS BEING ABLE TO TAKE THEM DURING ADMISSION. SPOKE WITH DR. CARBONE. NEW ORDER RECEIVED TO ALLOW PATIENT TO TAKE THEM DURING ADMISSION.
--- NOTE | 2019-04-05 18:45 | NUR ---
PATIENT COOPERATIVE THROUGHOUT SHIFT. PATIENT EXPRESSED SOME ANXIETY ABOUT DISCHARGE. PATIENT AGREEABLE TO PARTICIPATE IN CARE. PATIENT WORKED WITH OT. PATIENT'S ADOPTED DAUGHTER WAS PRESENT WHEN BETZAIDA, FROM [place], AND GERARDO, HOUSING SPECIALIST WERE IN THE ROOM TO DISCUSS DISCHARGE OPTIONS. PATIENT AMBULATED IN GARCIA WITH WALKER AND SBA. PATIENT STEADY ON FEET AND RECOGNIZED OWN LIMITATIONS. PATIENT HAS BEEN CALLING APPROPRIATELY. PATIENT REPORTED SOB ONE TIME. SOB RESOLVED WITH RT TREATMENT.
--- NOTE | 2019-04-06 05:19 | NUR ---
SHIFT SUMMARY PT CONTINUES TO BE SET IN HER WAYS AND TALKS AT LENGTH ABOUT HOW SHE DOES NOT WANT SOMEONE TO HAVE "GUARDIANSHIP" OF HER, AND HOW SHE DOES NOT WANT TO GO LIVE AT A FACILITY. HOWEVER, IN GENERAL, PT PLEASANT AND COOPERATIVE. DID NOT REFUSE ANY CARE OR MEDICATIONS. CALLED WHEN SHE HAD TO VOID. SBA TO BSC. PT IS [place] AND HAS IMPAIRED VISION WELL. THIS CAN CREATE A BARRIER WITH COMMUNICATION. PT REACTS BETTER WHEN SPOKEN TO SLOWLY AND LOUDLY AND WHEN SHE HAS A GOOD AMOUNT OF TIME TO REPLY. OTHERWISE NO ACUTE CHANGES THIS SHIFT. VSS. WILL CONTINUE TO MONITOR AND REPORT TO DAY RN.
--- NOTE | 2019-04-06 19:00 | NUR ---
PT. SITIING ON EDGE OF BED AT THIS TIME. PT. TRANSFERS SELF TO BSC AND BACK. ALSO WALKS OUT IN GARCIA WITH HER FWW. HAS A STEADY GAIT. NO NOTEABLE CHANGES THIS SHIFT.
--- NOTE | 2019-04-07 04:33 | NUR ---
SHIFT SUMMARY NO ACUTE CHANGES OVERNIGHT. PT PLEASANT TOWARD STAFF. AKHIOK. PT UP AMBULATING IN HALLWAY WITH FWW. PT COMPLAINED OF HEADACHE AND INDEGESTION AND REQUESTED TYLENOL AND TUMS WHICH WERE PROVIDED. WILL CONTINUE TO MONITOR.
[2019-04-07 05:31] LABS: BASOPHILS ABSOLUTE AUTO 0.05 K/mm3 (0.00-0.23); BASOPHILS PERCENT AUTO 1 % (0-2); EOSINOPHILS ABSOLUTE AUTO 0.35 K/mm3 (0.00-0.68); EOSINOPHILS PERCENT AUTO 5 % (0-6); Hematocrit 37.7 % (33.0-51.0); Hemoglobin 12.3 g/dL (11.5-16.0); IMMATURE GRAN ABSOLUTE AUTO 0.04 K/mm3 (0.00-0.10); IMMATURE GRAN PERCENT AUTO 1 % (0-1); LYMPHOCYTES ABSOLUTE AUTO 1.09 K/mm3 (0.84-5.20); LYMPHOCYTES PERCENT AUTO 15 % (21-46); MONOCYTES ABSOLUTE AUTO 0.93 K/mm3 (0.16-1.47); MONOCYTES PERCENT AUTO 13 % (4-13); Mean Corpuscular HGB 31.9 pg (26.0-34.0); Mean Corpuscular HGB Conc 32.6 g/dL (31.5-36.5); Mean Corpuscular Volume 98 fL (80-100); Mean Platelet Volume 10.6 fL (9.1-12.4); NEUTROPHILS ABSOLUTE AUTO 4.92 K/mm3 (1.96-9.15); NEUTROPHILS PERCENT AUTO 67 % (41-73); Platelet Count 220 K/mm3 (150-400); RDW Coefficient Variation 13.7 % (11.7-14.2); RDW Standard Deviation 48.1 fL (35.1-46.3); Red Blood Cell Count 3.86 M/mm3 (3.80-5.20); White Blood Cell Count 7.38 K/mm3 (4.00-11.30)
--- NOTE | 2019-04-07 18:50 | NUR ---
PT. WITHOUT CHANGE THIS SHIFT. TRIED TO GIVE PT. SUPPOSITORY EARLIER AND SHE KEPT PUTTING IT OFF, FIRST SHE WANTED TO TRY AND POOP AGAIN, THEN HER DINNER WAS HERE, THEN SHE WANTED A BREATHING TREATMENT FIRST, PASSED INFORMATION TO MANAGER MEMBERSHIP. POSSIBLE DISCHARGE TOMORROW.
--- NOTE | 2019-04-08 05:54 | NUR ---
NO ACUTE CHANGES OVERNIGHT. PATIENT HAD PUT OFF ORDERED SUPPOSITORY FOR DAY SHIFT NURSE YESTERDAY (04/07) AND HAD STATED TO DAY NURSE THAT SHE WANTED TO HOLD OF ON SUPPOSITORY FOR BEFORE BED LAST NIGHT. DURING NIGHT MED PASS THE PATIENT STATED THAT SHE WANTED TO WAIT UNTIL MORNING TO TAKE SUPPOSITORY AND MILK OF MAG BECAUSE SHE WAS TIRED. THE PATIENT WAS AWAKE MOST THE NIGHT BUT REFUSED ON MULTIPLE OCCASIONS TO TAKE THE ORDERED SUPPOSITORY. THE PATIENT STATED THAT HER BSC WAS FOOL OF BM BUT WHEN STAFF EMPTIED BSC THERE WAS ONLY A SMEAR OF BM. PATIENT STILL REFUSED MILK OF MAG AND DULCOLAX. PATIENT REPEATEDLY ASKING FOR BREATHING TREATMENT EVEN AFTER RECEIVING BREATHING TREATMENT. MILDLY CONFUSED T/O THE NIGHT. AMBULATED IN GARCIA WITH FWW AND ABLE TO TRANSFER SELF TO BS.PATIENT POSSIBLY DISCHARGING HOME TODAY WITH "NANCY"
[2019-04-08] MEDS ORDERED: LOSA25 PO (14:47)
[2019-04-08] MEDS ORDERED: DOCU100 PO (14:47)
[2019-04-08] MEDS ORDERED: METO25 PO (14:47)
[2019-04-08] MEDS ORDERED: GUAI600T33 PO (14:48)
[2019-04-08] MEDS ORDERED: Milk Of Ma400 MG/5 M PO (14:49)
[2019-04-08] MEDS ORDERED: OMEPRAZOLE MAGN20 MG PO (14:50)
[2019-04-08] MEDS ORDERED: MIRALAX17 GM PO (14:52)
[2019-04-08] MEDS ORDERED: SPIR25 PO (14:53)
--- NOTE | 2019-04-08 16:16 | NUR ---
PT DISCHARGED VIA W/C POV WITH CAREGIVER TO HOME. ALL BELONGINGS SENT HOME WITH PATIENT. PAPERWORK ON GUARDIANSHIP PROVIDED TO PT'S CAREGIVER NANCY. WRITTEN RX COPY PROVIDED FOR NEBULIZER AND RX FOR WALKER FAXED BY BETZAIDA. PT AND CAREGIVER VERBALIZED UNDERSTANDING OF ALL DISCHARGE INSTRUCTIONS.
== END 2019-04-08 16:27 | disposition home health service (06) | DRG 291 ==
LOC: ER 07:46 → PCU 10:43 → MEDS 10:43 → PCU 12:49 → MEDS 03-26 18:20
PROVIDERS: Emergency Medicine; Hospitalist; Internal Medicine; Internal Medicine Gastroenterology; Student in an Organized Health Care Education/Training Program; ADMIT Family Medicine
DX: I13.0 Hypertensive heart and chronic kidney disease with heart failure and stage 1 through stage 4 chronic kidney disease, or unspecified chronic kidney disease (principal); J96.21 Acute and chronic respiratory failure with hypoxia; I50.33 Acute on chronic diastolic (congestive) heart failure; S06.0X9A Concussion with loss of consciousness of unspecified duration, initial encounter; E87.1 Hypo-osmolality and hyponatremia; J42 Unspecified chronic bronchitis; J43.9 Emphysema, unspecified; E78.5 Hyperlipidemia, unspecified; D75.1 Secondary polycythemia; Z66 Do not resuscitate; W01.0XXA Fall on same level from slipping, tripping and stumbling without subsequent striking against object, initial encounter; N18.3 Chronic kidney disease, stage 3 (moderate); G30.9 Alzheimer's disease, unspecified; F02.80 Dementia in other diseases classified elsewhere, unspecified severity, without behavioral disturbance, psychotic disturbance, mood disturbance, and anxiety; K59.09 Other constipation; H54.7 Unspecified visual loss; M47.817 Spondylosis without myelopathy or radiculopathy, lumbosacral region; Z87.891 Personal history of nicotine dependence
CPT/HCPCS: 36415; 36600; 71045; 71250; 71260; 80048; 80053; 80069; 81003; 82803; 83605; 83735; 83880; 84100; 84145; 84484; 85025; 87040; 87486; 87581; 87633; 87798; 92523; 93005; 93010; 93306; 94640; 94660; 94760; 94762; 96361; 96365; 96372-59; 96375; 96376; 97162; 97166; 97530; 97535; 99285-25; A9270; A9270-GY; C9113; J0360; J1650; J1940; J1956; J2060; J2550; J2930; J3480; J7030; Q9967